=== PATIENT | male | born 1935 | race Caucasian/White ===

== ENCOUNTER 2019-08-20 20:58 | Inpatient (IN) ==
[2019-08-21] MEDS ORDERED: ASPIRIN CHEW 81 MG TABLET PO STA (00:03)
[2019-08-21 01:06] LABS: Basophils % 0.1 % (0.0-0.8); Hematocrit 39.4 VOL% (42.0-52.0); Hemoglobin 12.7 GM/DL (14.0-18.0); Immature Granulocytes % 1.1 %; Immature Granulocytes Absolute 0.15 #; Lymphocytes # 1.8 10*3/uL (1.4-4.0); Lymphocytes % 13.9 % (21.2-54.2); Mean Corpuscular HGB Conc 32.2 GM/DL (32-36); Mean Corpuscular Volume 89.3 FL (87-102); Mean Platelet Volume 9.9 FL (9.6-12.0); Monocytes % 6.2 % (1.7-12.7); Neutrophils % 78.7 % (38.7-73.9); Platelet Count 282 T/CUMM (130-400); Red Blood Count 4.41 MC/CUMM (3.8-5.5); Red Cell Distribution Width 13.7 % (9.3-17.3); White Blood Count 13.3 T/CUMM (4-12)
[2019-08-21 01:33] LABS: Alanine Aminotransferase 21 U/L (16-61); Albumin 3.9 G/DL (3.4-5.0); Alkaline Phosphatase 113 U/L (45-117); Aspartate Amino Transferase 26 U/L (0-37); Bilirubin,Total < 0.39 MG/DL (0.2-1.0); Blood Urea Nitrogen 26 MG/DL (7-18); Calcium 9.8 MG/DL (8.5-10.1); Estimated Glom Filtration Rate 56 ML/MIN; Total Protein 8.2 G/DL (6.4-8.3)
[2019-08-21 01:34] LABS: Glucose 112 MG/DL (74-106); Osmolality,Calculated 275.1 MOS/KG (273-304)
[2019-08-21 01:34] LABS: Apearance,Urine CLEAR (Clear); Bilirubin,Urine Negative (Negative); Blood, Urine Negative (Negative); Glucose,Urine (UA) Negative (Negative); Ketones,Urine Negative (Negative); Mucus,Urine Occasional /LPF (Occasional); Nitrite,Urine Negative (Negative); Protein,Urine 100 MG/DL; RBC,Urine 2 /HPF (0-4); Urine Color Yellow (Yellow); Urine Specific Gravity 1.015 (1.001-1.035); Urine Urobilinogen < 2.0 EU/DL (0.2-1.0); WBC,Urine <1 /HPF (0-6)
[2019-08-21] MEDS ORDERED: guaiFENesin/DM ER 600-30 MG TABLET PO PRN (02:41)
[2019-08-21] MEDS ORDERED: ACETAMINOPHEN 325 MG TABLET PO PRN (02:41)
[2019-08-21] MEDS ORDERED: GLUCAGON 1 MG VIAL IM PRN (02:41)
[2019-08-21] MEDS ORDERED: ONDANSETRON 4 MG/2 ML VIAL IV PRN (02:41)
[2019-08-21] MEDS ORDERED: diphenhydrAMINE CAP 25 MG CAPSULE PO PRN (02:41)
[2019-08-21] MEDS ORDERED: NICOTINE 21 MG/24 HR PATCH TRANSDERM PRN (02:41)
[2019-08-21] MEDS ORDERED: hydrALAZINE 20 MG/1 ML VIAL IV PRN (02:41)
[2019-08-21] MEDS ORDERED: DEXTROSE 10% 250 ML BAG IV PRN (02:47)
[2019-08-21 07:17] LABS: Risk Ratio 2.58; VLDL CHOLESTEROL 14.2 MG/DL
[2019-08-21] MEDS ORDERED: ENOXAPARIN 40 MG/0.4 ML SYRINGE SUBCUT SCH (09:00)
[2019-08-21] MEDS: ASPIRIN 325 MG TABLET PO SCH (09:22)
[2019-08-21] MEDS: SIMVASTATIN 40 MG TABLET PO SCH (20:22)
[2019-08-21] MEDS: GABAPENTIN 100 MG CAPSULE PO SCH (20:22)
[2019-08-21] MEDS ORDERED: SIMVASTATIN 10 MG TABLET PO SCH (21:00)
[2019-08-22] MEDS: LEVOTHYROXINE 88 MCG TABLET PO SCH (09:01)
[2019-08-22] MEDS: amLODIPine 5 MG TABLET PO SCH (09:01)
[2019-08-22] MEDS: CLOPIDOGREL 75 MG TABLET PO SCH (09:01)
[2019-08-22] MEDS: ASPIRIN 325 MG TABLET PO SCH (09:01)
[2019-08-22] MEDS: NICOTINE 21 MG/24 HR PATCH TRANSDERM SCH (09:03)
[2019-08-22] MEDS ORDERED: POLYETHYLENE GLYCOL POWDER 17 GM PACK PO ONE (17:57)
[2019-08-22] MEDS: SIMVASTATIN 40 MG TABLET PO SCH (20:46)
[2019-08-22] MEDS: GABAPENTIN 100 MG CAPSULE PO SCH (20:46)
[2019-08-23 07:16] LABS: Basophils # 0.1 10*3/uL (0.0-0.2); Basophils % 0.6 % (0.0-0.8); Eosinophils # 0.2 10*3/uL (0.0-0.87); Eosinophils % 1.8 % (0.00-10.9); Immature Granulocytes % 0.4 %; Immature Granulocytes Absolute 0.04 #; Lymphocytes # 4.6 10*3/uL (1.4-4.0); Lymphocytes % 48.4 % (21.2-54.2); Mean Corpuscular HGB Conc 31.7 GM/DL (32-36); Mean Corpuscular Volume 89.1 FL (87-102); Mean Platelet Volume 9.8 FL (9.6-12.0); Monocytes % 10.5 % (1.7-12.7); Neutrophils % 38.3 % (38.7-73.9); Platelet Count 271 T/CUMM (130-400); Red Cell Distribution Width 13.6 % (9.3-17.3); White Blood Count 9.6 T/CUMM (4-12)
[2019-08-23 07:28] LABS: Calcium 8.9 MG/DL (8.5-10.1); Osmolality,Calculated 274.8 MOS/KG (273-304)
[2019-08-23 08:06] LABS: Eosinophils 1 % (0-10); Lymphocytes 47 % (20-55); Platelet Estimate Normal; Segmented Neutrophils 42 % (50-85); Total Cells Counted 100
[2019-08-23 08:07] LABS: Anisocytosis 1+; Macrocytosis 1+
[2019-08-23] MEDS: amLODIPine 5 MG TABLET PO SCH (08:57)
[2019-08-23] MEDS: LEVOTHYROXINE 88 MCG TABLET PO SCH (08:57)
[2019-08-23] MEDS: ASPIRIN 325 MG TABLET PO SCH (08:57)
[2019-08-23] MEDS: CLOPIDOGREL 75 MG TABLET PO SCH (08:58)
[2019-08-23] MEDS: POLYETHYLENE GLYCOL POWDER 17 GM PACK PO SCH ×2 (08:59→09:29)
[2019-08-23] MEDS: NICOTINE 21 MG/24 HR PATCH TRANSDERM SCH (08:59)
[2019-08-23 12:51] VITALS: BP 171/82
== END 2019-08-23 15:21 | DRG 65 ==
LOC: EDBD → N.ED 20:58 → N.EDINP 20:58 → N.3E 08-21 03:46 → SUATTDRO 08-21 15:40
PROVIDERS: ADMIT Internal Medicine; ATTEND Family Medicine